=== PATIENT | female | born 1955 | race Caucasian/White ===

== ENCOUNTER 2017-10-17 08:38 | Outpatient (CLI) | payer OTHER, SELFPAY ==
[2017-10-17] VITALS (12 sets, daily range): BP systolic 98–133; BP diastolic 64–74; PULSE 55–81; RESP 14–18; TEMP 36.4; O2SAT 97–100
--- NOTE | 2017-10-17 08:41 | DI.RAD.S_ITS ---
PROCEDURE: PAIN C/T INTERLAMINAR INJECT INDICATIONS: 62 year-old female with cervical stenosis and bilateral upper extremity paresthesias. FINDINGS: Fluoroscopic spot filming was performed to verify placement of spinal needles at the right posterior paramedian C6-C7 level(s), as labeled on the films. Appropriate location(s) of the needle tip(s) was confirmed by injection of iodinated contrast. IMPRESSION: Fluoroscopic guidance for C6-C7 epidural injection. Dictated by: Clovis Armando M.D. on 10/17/2017 at 17:33 Approved by: Clovis Armando M.D. on 10/17/2017 at 17:34
--- NOTE | 2017-10-17 09:19 | PM.PROC.1 ---
Procedures Date/Time Date of procedure: 10/17/17 Time of procedure: 09:19 General Procedure description: PREOP DIAGNOSIS 1. CERVICAL STENOSIS, 2. CERVICAL HNP WITH UPPER EXTREMITY RADICULAR FEATURES, POST OP DIAGNOSIS 1. CERVICAL STENOSIS, 2. CERVICAL HNP WITH UPPER EXTREMITY RADICULAR FEATURES, PROCEDURES 1. FLUORSCOPICALLY GUIDED CONTRAST CONTROLLED INTERLAMINAR EPIDURAL STEROID INJECTION - C6/7 TL ERIN PHYSICIAN: Jose Alejandro Rivera DO INDICATIONS: Kiki is referred by Dr. Duffy for treatment of Cervical HNP with Upper Extremity Paresthesias. FINDINGS Cervical Stenosis due to disc deterioration and nerve root irritation and nerve root irritation DESCRIPTION OF PROCEDURE Fluoroscopically guided, contrast-controlled C6/7 translaminar epidural steroid injection with conscious sedation. Following denial of allergy and review of potential side effects and complications, including, but not necessarily limited to, infection, allergic reaction, local tissue breakdown, temporary as well as permanent nerve injury, stroke, paralysis, and possible , the patient indicated that patient understood and agreed to proceed. An informed consent document was signed by the patient, witnessed by a nurse, and placed in the patient's chart. Additionally, other treatment options including modalities, medications, and physical therapy were reviewed with the patient. Per the patient request, IV conscious sedation was administered via 3mg of Versed and 50mcg of Fentanyl to patient comfort. The patient's vital signs were monitored throughout the procedure by both the nurse and the physician without significant fluctuation. The patient remained conversant throughout the procedure. In the prone position, following sterile prep and drape of the cervical region, the C6/7 translaminar space was identified fluoroscopically. The skin was anesthetized via a 25-gauge 1.5-inch needle with 1% lidocaine solution. At this point, a 25-gauge, 2.5-inch short bevel spinal needle was atraumatically introduced and advanced under fluoroscopic guidance into epidural space at the C6/7 translaminar space. Depth was confirmed on lateral view. Radiological data, including multiple fluoroscopic views of the cervical spine, reveal a spinal needle at the C6/7 translaminar space. Lateral views then show placement of the needle in the epidural space. Subsequent views show contrast material flowing superiorly and inferiorly in the epidural space. DSA fluoroscopy with live contrast injection, once again, confirmed no vascular or intrathecal uptake. At this point, using loss of resistance technique with saline and air, the epidural space was entered. Following negative aspiration, injection of approximately 1.5 cc of Isovue-200 with live fluoroscopy in the AP view confirmed epidural flow in the epidural space without vascular or intrathecal uptake observed. Subsequently, a test dose of 1 cc of 1% lidocaine solution was injected and patient was observed for two minutes without signs or symptoms of complications, including abdominal pain, shortness of breath, bilateral upper or lower extremity weakness, nausea and vomiting, prior to steroid injection. At this point, 3 cc or 30 mg of dexamethasone was then injected without incident. The patient was then transferred to the recovery area where they were observed for an appropriate period of time after the injection. The patient reported a VAS score of 6 prior to the procedure and a post-procedure VAS of 0. Total Fluoroscopy Time: 37.0 seconds Total Conscious Time: 24min POST OP INSTRUCTIONS The patient was provided a Pain Log to continue to record their response to the target-specific procedure prior to follow-up visit with the referring provider. Additionally, specific post-injection care instructions and a contact number to our office were provided if concerns arise regarding possible complications associated with the procedure are suspected. Jose Alejandro Rivera, DO Complications: none
[2017-10-17] MEDS: MIDAZOLAM 5 MG/5 ML VIAL IV (09:53)
[2017-10-17] MEDS: DEXAMETHASONE 10 MG/ML VIAL 30 MG INJ (10:00)
[2017-10-17] MEDS: LIDOCAINE 1% 20 ML INJ 5 ML INJ (10:00)
[2017-10-17] MEDS: IOPAMIDOL 15 ML VIAL 3 ML INJ (10:00)
== END 2017-10-17 10:43 | disposition home or self-care (01) ==
LOC: RAD 08:40
PROVIDERS: Family Provider Physician Assistant; PCP Family Medicine; Visit Provider Physical Medicine & Rehabilitation
DX: M50.123 Cervical disc disorder at C6-C7 level with radiculopathy (principal); M50.20 Other cervical disc displacement, unspecified cervical region; R20.2 Paresthesia of skin; M48.02 Spinal stenosis, cervical region
CPT/HCPCS: 62321; 99152; 99153; J1100; J2250

== ENCOUNTER 2018-01-02 08:38 | Outpatient (CLI) | payer OTHER, SELFPAY ==
[2018-01-02] VITALS (11 sets, daily range): BP systolic 96–110; BP diastolic 53–80; PULSE 62–88; RESP 16–20; TEMP 36.1; O2SAT 97–100
--- NOTE | 2018-01-02 | DI.RAD.S_ITS ---
PROCEDURE: PAIN C/T FACET INJ/BLK 1ST L INDICATIONS: RADICULOPATHY,CERVICA;L FINDINGS: Fluoroscopic spot filming was performed to verify placement of spinal needles at the right C4-5, C5-6, C6-7 facet level(s), as labeled on the films. Appropriate location(s) of the needle tip(s) was confirmed by injection of iodinated contrast. IMPRESSION: Successful right-sided 3 level facet localization for facet joint injection. Dictated by: Edi Harris M.D. on 01/02/2018 at 13:18 Approved by: Edi Harris M.D. on 01/02/2018 at 13:19
[2018-01-02 09:07] LABS: Add Manual Diff / Slide Review NO; Basophils Percent Auto 0.8 % (0-2); Hematocrit 41.7 % (36-46); Hemoglobin 14.6 g/dL (12.0-16.0); Lymphocytes Percent Auto 22.7 % (25-40); Mean Corpuscular HGB Conc 34.9 % (30-36); Mean Corpuscular Hemoglobin 33.1 PG (26-34); Mean Corpuscular Volume 94.9 fL (80-100); Monocytes Percent Auto 12.3 % (3-14); Neutrophils Absolute Auto 3100 /uL (3000-5900); Neutrophils Percent Auto 62.2 % (50-75); Platelet Count 191 X10^3/uL (150-400); Red Cell Distribution Width 12.5 % (11.6-14.8)
[2018-01-02 09:13] LABS: Appearance Urine UA CLEAR; Bilirubin Urine UA NEGATIVE (NEGATIVE); Color Urine UA YELLOW; Glucose Urine UA NEGATIVE (Normal); Ketones Urine UA NEGATIVE (NEGATIVE); Leukocyte Esterase Urine UA NEGATIVE (NEGATIVE); Nitrite Urine UA Negative (Negative); Occult Blood Urine UA NEGATIVE (Negative); Protein Urine UA NEGATIVE (Negative); Urobilinogen Urine UA 0.2 E.U./dL (0.2); pH Urine UA 7.5 (4.5-8.0)
[2018-01-02 09:15] LABS: Alanine Aminotransferase 23 IU/L (9-52); Albumin 4.3 g/dL (3.5-5.0); Albumin Globulin Ratio 1.5 (1.0-2.8); Alkaline Phosphatase 60 U/L (38-126); Aspartate Aminotransferase 30 IU/L (14-36); BUN Creatinine Ratio 17.5 (6-22); Bilirubin Total 0.7 mg/dL (0.2-1.3); Blood Urea Nitrogen 14 mg/dL (7-17); Calcium 9.2 mg/dL (8.4-10.2); Carbon Dioxide 32 mmol/L (22-32); Chloride 102 mmol/L (98-107); Cholesterol 203 mg/dL (140-199); Estimated Glomerular Filt Rate > 60.0 mL/min (>60); Globulin 2.8 g/dL (1.7-4.1); Glucose 88 mg/dL (80-110); HDL Cholesterol 48 mg/dL (40-60); HEMOLYSIS 16 (0-50); LDL Cholesterol Calculated 118 mg/dL (<100); Potassium 4.2 mmol/L (3.4-5.1); Sodium 139 mmol/L (137-145); Total Protein 7.1 g/dL (6.3-8.2); Triglycerides 183 mg/dL (35-150)
--- NOTE | 2018-01-02 09:29 | PM.PROC.1 ---
Procedures Date/Time Date of procedure: 01/02/18 Time of procedure: 09:29 General Procedure description: PREOP DIAGNOSIS 1. FACET ARTHROPATHY 2. AXIAL NECK PAIN POST OP DIAGNOSIS 1. FACET ARTHROPATHY 2. AXIAL NECK PAIN PROCEDURES 1. FLUOROSCOPICALLY GUIDED, CONTRAST-CONTROLLED RIGHT C4/5,C5/6 AND C6/7 FACET JOINT INJECTIONS WITH CONSCIOUS SEDATION. PHYSICIAN: Jose Alejandro Rivera, INDICATIONS Kiki is referred by Dr. Duffy for treatment of Axial Neck Pain DESCRIPTION OF PROCEDURE Fluoroscopically guided, contrast-controlled Right C4/5, C5/6 and C6/7 facet joint injections with conscious sedation. Following denial of allergy and review of potential side effects and complications, including, but not necessarily limited to, infection, allergic reaction, local tissue breakdown, stroke, temporary or permanent nerve injury and paralysis, the patient indicated that the patient understood and agreed to proceed. An informed consent document was signed by the patient, witnessed by a nurse, and placed in the patient's chart. Additionally, other treatment options including medications, modalities, and physical therapy were reviewed with the patient. After review of previous anaesthesic history and IV conscious sedation the patient was deemed safe to proceed with todays procedure with IV conscious sedation as ASA class II designation. Safety time-out was performed to confirm patient ID, procedure to be performed and site of procedure. IV sedation was accomplished with a combination of 3mg was administered by the RN after DO order, titrated to patient comfort during the course of the procedure while the patient remained responsive to all verbal commands In the prone position, following sterile prep and drape of the cervical spine region, the posterior aspect of the right C4/5, C5/6 and C6/7 facet joints were identified fluoroscopically. The skin was anesthetized via a 25-gauge 1.5-inch needle with 1% lidocaine solution into the corresponding facet joints. At this point, a 25-gauge 2.5-inch spinal needle was atraumatically introduced and advanced under fluoroscopic guidance into the corresponding facet joints. Following negative aspiration, injections of approximately 0.2-cc of Isovue 200 confirmed interarticular placement without vascular uptake. At this point, a total of 1 cc including 0.5 cc or 5 mg of dexamethasone combined with 0.5 cc of 1% lidocaine solution was injected without complication into each of the corresponding facet joints. The procedure tolerated the procedure well without signs or symptoms of complications prior to transfer to the recovery area continued monitoring without incident. The patient was then transferred to the recovery area where they were observed for an appropriate period of time after the injection. The patient reported a VAS score of 7 prior to the procedure and a post-procedure VAS of 0. Total Fluoroscopy Time: 20.5 seconds Total Conscious Sedation Time: 24 min POST OP INSTRUCTIONS They were provided a Pain Log to continue to record their response to the target-specific procedure prior to their follow-up visit with their referring physician. Additionally, specific post-injection care instructions and a contact number to our office were provided if concerns arise regarding possible complications associated with the procedure are suspected. Jose Alejandro Rivera DO Complications: none
--- NOTE | 2018-01-02 09:32 | P.PCN_ITS ---
Procedures Date/Time Date of procedure: 01/02/18 Time of procedure: 09:29 General Procedure description: PREOP DIAGNOSIS 1. FACET ARTHROPATHY 2. AXIAL NECK PAIN POST OP DIAGNOSIS 1. FACET ARTHROPATHY 2. AXIAL NECK PAIN PROCEDURES 1. FLUOROSCOPICALLY GUIDED, CONTRAST-CONTROLLED RIGHT C4/5,C5/6 AND C6/7 FACET JOINT INJECTIONS WITH CONSCIOUS SEDATION. PHYSICIAN: Jose Alejandro Rivera, INDICATIONS Kiki is referred by Dr. Duffy for treatment of Axial Neck Pain DESCRIPTION OF PROCEDURE Fluoroscopically guided, contrast-controlled Right C4/5, C5/6 and C6/7 facet joint injections with conscious sedation. Following denial of allergy and review of potential side effects and complications, including, but not necessarily limited to, infection, allergic reaction, local tissue breakdown, stroke, temporary or permanent nerve injury and paralysis, the patient indicated that the patient understood and agreed to proceed. An informed consent document was signed by the patient, witnessed by a nurse, and placed in the patient's chart. Additionally, other treatment options including medications, modalities, and physical therapy were reviewed with the patient. After review of previous anaesthesic history and IV conscious sedation the patient was deemed safe to proceed with todays procedure with IV conscious sedation as ASA class II designation. Safety time-out was performed to confirm patient ID, procedure to be performed and site of procedure. IV sedation was accomplished with a combination of 3mg was administered by the RN after DO order , titrated to patient comfort during the course of the procedure while the patient remained responsive to all verbal commands In the prone position, following sterile prep and drape of the cervical spine region, the posterior aspect of the right C4/5, C5/6 and C6/7 facet joints were identified fluoroscopically. The skin was anesthetized via a 25-gauge 1.5-inch needle with 1% lidocaine solution into the corresponding facet joints. At this point, a 25-gauge 2.5-inch spinal needle was atraumatically introduced and advanced under fluoroscopic guidance into the corresponding facet joints. Following negative aspiration, injections of approximately 0.2-cc of Isovue 200 confirmed interarticular placement without vascular uptake. At this point, a total of 1 cc including 0.5 cc or 5 mg of dexamethasone combined with 0.5 cc of 1% lidocaine solution was injected without complication into each of the corresponding facet joints. The procedure tolerated the procedure well without signs or symptoms of complications prior to transfer to the recovery area continued monitoring without incident. The patient was then transferred to the recovery area where they were observed for an appropriate period of time after the injection. The patient reported a VAS score of 7 prior to the procedure and a post- procedure VAS of 0. Total Fluoroscopy Time: 20.5 seconds Total Conscious Sedation Time: 24 min POST OP INSTRUCTIONS They were provided a Pain Log to continue to record their response to the target -specific procedure prior to their follow-up visit with their referring physician. Additionally, specific post-injection care instructions and a contact number to our office were provided if concerns arise regarding possible complications associated with the procedure are suspected. Jose Alejandro Rivera DO Complications: none
[2018-01-02] MEDS: MIDAZOLAM 5 MG/5 ML VIAL IV (09:55)
[2018-01-02] MEDS: BUPIVACAINE 0.25% (PF) VIAL 2 ML INJ (10:05)
[2018-01-02] MEDS: DEXAMETHASONE 10 MG/ML VIAL 30 MG INJ (10:06)
[2018-01-02] MEDS: IOPAMIDOL 15 ML VIAL 3 ML INJ (10:06)
[2018-01-02 10:28] LABS: Thyroid Stimulating Hormone 0.16 uIU/mL (0.47-4.68)
--- NOTE | 2018-01-03 13:38 | PC.NURSE ---
Called patient for follow up post procedure yesterday, left message as pt did not answer.
== END 2018-01-02 10:39 ==
PROVIDERS: PCP Family Medicine; Visit Provider Physical Medicine & Rehabilitation
DX: M47.22 Other spondylosis with radiculopathy, cervical region (principal); M54.2 Cervicalgia; I10 Essential (primary) hypertension; E78.2 Mixed hyperlipidemia; Z13.29 Encounter for screening for other suspected endocrine disorder
CPT/HCPCS: 36415; 64490; 64491; 80053; 80061; 81003; 84443; 85025; 99152; J1100; J2250

== ENCOUNTER → 2018-02-18 14:33 | Outpatient (CLI) | payer OTHER, SELFPAY ==
[2018-02-18 15:22] LABS: Add Manual Diff / Slide Review NO; Basophils Percent Auto 0.7 % (0-2); Eosinophils Percent Auto 1.2 % (2-4); Hematocrit 43.7 % (36-46); Lymphocytes Percent Auto 20.3 % (25-40); Mean Corpuscular HGB Conc 34.2 % (30-36); Mean Corpuscular Hemoglobin 32.9 PG (26-34); Mean Corpuscular Volume 96.3 fL (80-100); Monocytes Percent Auto 9.6 % (3-14); Neutrophils Absolute Auto 4400 /uL (3000-5900); Neutrophils Percent Auto 68.2 % (50-75); Platelet Count 206 X10^3/uL (150-400); Red Blood Cell Count 4.54 X10^6/uL (4.0-5.2); Red Cell Distribution Width 12.2 % (11.6-14.8); White Blood Cell Count 6.4 X10^3/uL (4.5-11.0)
[2018-02-18 16:16] LABS: Alanine Aminotransferase 30 IU/L (9-52); Albumin 4.4 g/dL (3.5-5.0); Albumin Globulin Ratio 1.6 (1.0-2.8); Alkaline Phosphatase 58 U/L (38-126); Aspartate Aminotransferase 32 IU/L (14-36); BUN Creatinine Ratio 21.3 (6-22); Bilirubin Total 0.6 mg/dL (0.2-1.3); Blood Urea Nitrogen 17 mg/dL (7-17); Calcium 9.9 mg/dL (8.4-10.2); Carbon Dioxide 32 mmol/L (22-32); Chloride 102 mmol/L (98-107); Estimated Glomerular Filt Rate > 60.0 mL/min (>60); Globulin 2.8 g/dL (1.7-4.1); Glucose 80 mg/dL (80-110); HEMOLYSIS < 15 (0-50); Potassium 4.7 mmol/L (3.4-5.1); Sodium 143 mmol/L (137-145); Total Protein 7.2 g/dL (6.3-8.2)
[2018-02-18 16:34] LABS: Free T3, Triiodothyronine Free 2.76 pg/mL (2.77-5.27); Free T4, Direct Thyroxine 0.94 ng/dL (0.78-2.19)
[2018-02-18 18:37] LABS: Thyroid Stimulating Hormone 0.55 uIU/mL (0.47-4.68)
[2018-02-20 15:23] LABS: Estradiol 40 pg/mL
== END ==
PROVIDERS: PCP Family Medicine; Visit Provider Family Medicine
DX: N95.0 Postmenopausal bleeding (principal); R79.89 Other specified abnormal findings of blood chemistry
CPT/HCPCS: 36415; 80053; 82670; 83001; 84439; 84443; 84481; 85025

== ENCOUNTER → 2018-02-20 14:46 | Outpatient (CLI) | payer OTHER, SELFPAY ==
--- NOTE | 2018-02-20 14:52 | DI.MRI.S_ITS ---
PROCEDURE: MR LUMBAR SPINE WO CON INDICATIONS: Low back pain with right lower extremity symptoms TECHNIQUE: Noncontrast sagittal T1 spin echo and T2 fast echo, sagittal STIR, axial T1 and T2 fast spin echo through the lumbar spine. In cases with scoliosis, additional coronal T2 fast spin echo may be performed. COMPARISON: None. FINDINGS: Image quality: Excellent. Alignment and Curvature: There is normal bony alignment. Bone Marrow: Marrow is of normal overall signal. No acute vertebral body compression fractures. Spinal Cord: Conus medullaris terminates at the T12 level. Visualized cord demonstrates normal signal and size. Paraspinous Soft Tissues: No paravertebral masses. Tarlov cysts are partially characterized at S2-S3. L1-L2: Normal appearance. L2-L3: Normal appearance. L3-L4: Mild disc desiccation. Broad-based disc bulge. Mild facet ligamentum flavum hypertrophy. No canal stenosis. Mild bilateral foraminal stenosis. L4-L5: Moderate disc desiccation and height loss. Broad-based disc bulge. Moderate facet ligamentum flavum hypertrophy. No canal stenosis. Mild bilateral neuroforaminal narrowing. Small focal posterior high intensity zone. L5-S1: Severe disc desiccation and height loss. Broad-based disc bulge. Reactive endplate changes. No canal stenosis. No neural foraminal narrowing. IMPRESSION: 1. Multilevel disc desiccation and height loss most severe at L5-S1. 2. Posterior L4-L5 annular fibrosis tear. 3. No canal stenosis or significant foraminal stenosis. Dictated by: Nereida Dunham M.D. on 02/20/2018 at 16:20 Approved by: Nereida Dunham M.D. on 02/20/2018 at 16:28
== END ==
PROVIDERS: PCP Family Medicine; Visit Provider Physical Medicine & Rehabilitation
DX: M51.16 Intervertebral disc disorders with radiculopathy, lumbar region (principal); M47.27 Other spondylosis with radiculopathy, lumbosacral region
CPT/HCPCS: 72148

== ENCOUNTER 2018-02-27 08:56 | Outpatient (CLI) | payer OTHER, SELFPAY ==
[2018-02-27] VITALS (8 sets, daily range): BP systolic 97–121; BP diastolic 30–78; PULSE 62–71; RESP 14–16; TEMP 36.4; O2SAT 96–98
--- NOTE | 2018-02-27 09:02 | DI.RAD.S_ITS ---
PROCEDURE: PAIN C/T INTERLAMINAR INJECT INDICATIONS: CERVICAL STENOSIS FINDINGS: Fluoroscopic spot filming was performed to verify placement of spinal needles at the C6-C7 level(s), as labeled on the films. Appropriate location(s) of the needle tip(s) was confirmed by injection of iodinated contrast. Dictated by: Tanner Garcia M.D. on 02/27/2018 at 13:30 Approved by: Tanner Garcia M.D. on 02/27/2018 at 13:32
[2018-02-27] MEDS: MIDAZOLAM 5 MG/5 ML VIAL IV (09:36)
[2018-02-27] MEDS: IOPAMIDOL 15 ML VIAL 3 ML INJ (09:36)
[2018-02-27] MEDS: LIDOCAINE 1% 20 ML INJ 5 ML INJ (09:36)
[2018-02-27] MEDS: DEXAMETHASONE 10 MG/ML VIAL 30 MG INJ (09:36)
--- NOTE | 2018-02-27 09:46 | PC.NURSE ---
pt finished, remains awake, will get her off table and into chair. Transferring from Procedure room to pre procedure room.
--- NOTE | 2018-02-27 09:51 | PM.PROC.1 ---
Procedures Date/Time Date of procedure: 02/27/18 Time of procedure: 09:51 General Procedure description: PREOP DIAGNOSIS 1. CERVICAL STENOSIS, 2. CERVICAL HNP WITH UPPER EXTREMITY RADICULAR FEATURES, POST OP DIAGNOSIS 1. CERVICAL STENOSIS, 2. CERVICAL HNP WITH UPPER EXTREMITY RADICULAR FEATURES, PROCEDURES 1. FLUORSCOPICALLY GUIDED CONTRAST CONTROLLED INTERLAMINAR EPIDURAL STEROID INJECTION - C6/7 TL ERIN PHYSICIAN: Jose Alejandro Rivera DO INDICATIONS: Kiki is referred by Dr. Duffy for treatment of Cervical HNP with Upper Extremity Paresthesias. FINDINGS Cervical Stenosis due to disc deterioration and nerve root irritation and nerve root irritation DESCRIPTION OF PROCEDURE Fluoroscopically guided, contrast-controlled C6/7 translaminar epidural steroid injection with conscious sedation. Following denial of allergy and review of potential side effects and complications, including, but not necessarily limited to, infection, allergic reaction, local tissue breakdown, temporary as well as permanent nerve injury, stroke, paralysis, and possible , the patient indicated that patient understood and agreed to proceed. An informed consent document was signed by the patient, witnessed by a nurse, and placed in the patient's chart. Additionally, other treatment options including modalities, medications, and physical therapy were reviewed with the patient. After review of previous anaesthesic history and IV conscious sedation the patient was deemed safe to proceed with todays procedure with IV conscious sedation as ASA class II designation. Safety time-out was performed to confirm patient ID, procedure to be performed and site of procedure. IV sedation was accomplished with a combination of 5mg of Versed administered by the RN after DO order, titrated to patient comfort during the course of the procedure while the patient remained responsive to all verbal commands. In the prone position, following sterile prep and drape of the cervical region, the C6/7 translaminar space was identified fluoroscopically. The skin was anesthetized via a 25-gauge 1.5-inch needle with 1% lidocaine solution. At this point, a 25-gauge, 2.5-inch short bevel spinal needle was atraumatically introduced and advanced under fluoroscopic guidance into epidural space at the C6/7 translaminar space. Depth was confirmed on lateral view. Radiological data, including multiple fluoroscopic views of the cervical spine, reveal a spinal needle at the C6/7 translaminar space. Lateral views then show placement of the needle in the epidural space. Subsequent views show contrast material flowing superiorly and inferiorly in the epidural space. DSA fluoroscopy with live contrast injection, once again, confirmed no vascular or intrathecal uptake. At this point, using loss of resistance technique with saline and air, the epidural space was entered. Following negative aspiration, injection of approximately 1.5 cc of Isovue-200 with live fluoroscopy in the AP view confirmed epidural flow in the epidural space without vascular or intrathecal uptake observed. Subsequently, a test dose of 1 cc of 1% lidocaine solution was injected and patient was observed for two minutes without signs or symptoms of complications, including abdominal pain, shortness of breath, bilateral upper or lower extremity weakness, nausea and vomiting, prior to steroid injection. At this point, 3 cc or 30 mg of dexamethasone was then injected without incident. The patient tolerated the procedure well without signs or symptoms of complications prior to being transferred to the recovery area for further monitoring, The patient was then transferred to the recovery area where they were observed for an appropriate period of time after the injection. The patient reported a VAS score of 6 prior to the procedure and a post-procedure VAS of 0. Total Fluoroscopy Time: 37.0 seconds Total Conscious Time: 24min POST OP INSTRUCTIONS The patient was provided a Pain Log to continue to record their response to the target-specific procedure prior to follow-up visit with the referring provider. Additionally, specific post-injection care instructions and a contact number to our office were provided if concerns arise regarding possible complications associated with the procedure are suspected. Jose Alejandro Rivera DO Complications: none
--- NOTE | 2018-02-27 09:58 | PC.NURSE ---
at 0952 recieved pt via w/c, stable condition, transfer self to recliner chair, pain free, tolerating drinking water and eating cookies.
== END 2018-02-27 10:23 | disposition home or self-care (01) ==
PROVIDERS: PCP Family Medicine; Visit Provider Physical Medicine & Rehabilitation
DX: M54.12 Radiculopathy, cervical region (principal); M50.20 Other cervical disc displacement, unspecified cervical region
CPT/HCPCS: 62321; 99152; J1100; J2250

== ENCOUNTER → 2018-03-04 13:54 | Outpatient (CLI) | payer OTHER, SELFPAY ==
--- NOTE | 2018-03-04 13:56 | DI.US.S_ITS ---
PROCEDURE: US PELVIC COMPLETE INDICATIONS: POST MENOPAUSAL BLEEDING TECHNIQUE: Real-time scanning was performed of the pelvic organs, with image documentation. Additional endovaginal scanning was necessary due to incomplete visualization of the adnexal and endometrial structures by transabdominal scanning. COMPARISON: [facility], CT, KUB - CT (PNL), 11/21/2011, 11:55. FINDINGS: Transabdominal scanning: Limited scanning through the kidneys shows no hydronephrosis. No pathologic free abdominal or pelvic fluid. Endovaginal scanning: Uterus: Uterus is normal in size at 8.1 x 3.2 x 5.9 cm. The endometrium measures 12 mm in combined thickness and there is multicystic appearance. Moderate arcuate appearance of the endometrial complex is noted. Nabothian cyst and small nodular endocervical mass with a vascular stalk suggesting possible endocervical polyp measuring 8 mm. Ovaries: Simple cyst Basi right ovary measuring 15 mm otherwise ovaries are normal. IMPRESSION: 1. Abnormal thickening and cystic changes of the endometrial complex. Endometrial carcinoma cannot be excluded and gynecologic consultation and endometrial biopsy is recommended. 2. Possible endocervical polyp or other neoplastic mass measuring 8 mm. 3. Simple right ovarian cyst. Dictated by: Keo ALVAA Interpreted: Radha Good MD on 03/04/2018 at 15:27 Approved by: Radha Good MD, PhD on 03/04/2018 at 15:42
== END ==
PROVIDERS: PCP Family Medicine; Visit Provider Family Medicine
DX: N95.0 Postmenopausal bleeding (principal); N83.291 Other ovarian cyst, right side; R93.89 Abnormal findings on diagnostic imaging of other specified body structures
CPT/HCPCS: 76830; 76856

== ENCOUNTER 2018-05-17 09:53 | Day surgery (SDC) | payer OTHER, SELFPAY ==
[2018-05-15 12:42] VITALS: BMI 22.4
[2018-05-17] VITALS (10 sets, daily range): BP systolic 102–129; BP diastolic 52–74; PULSE 64–84; RESP 12–17; TEMP 36.1–36.9; O2SAT 93–97; BMI 22.4
--- NOTE | 2018-05-17 | PATH_ITS ---
[facility] Accession Number: [id number] . 01 Material submitted: . ENDOMETRIAL CURETINGS AND POLYPS . 02 Diagnosis: Endometrial Curettings and Polyps: Portions of disordered proliferative endometrium; negative for glandular hyperplasia, cytologic atypia, and malignancy. Some tissue fragments demonstrate prominent vessels, suggestive of polyp, if clinical and imaging findings are concordant. MRV/05/20/2018 . 02 Electronically signed: . Viktoriya Pelaez MD, Pathologist NPI- [id number] . 01 Gross description: . Received one formalin-filled container labeled with the patient's name and labeled endometrial curettings and polyps. The specimen consists of approximately a 1.25 cc aggregate of tissue, mucoid material, and blood, which is filtered, wrapped, and entirely submitted in one cassette. ([id number]) /FRR . 02 Pathologist provided ICD-10: N84.0 . 02 CPT . 885488 Performed at: 01 [facility] [address], [place], [place] [id number] MD Jesse Osorio MD Phone: [phone] Performed at: 02 [facility] [address] [place], [place] [id number] MD Rosina Melo MD Phone: [phone]
[2018-05-17] MEDS: LACTATED RINGERS 1,000 ML 42 ML IV ×2 (10:40→14:24)
--- NOTE | 2018-05-17 12:40 | PM.PREOP ---
Pre-operative Note Interval Note History & Physical reviewed/Exam performed by Physician: Yes Changes to H&P: No
--- NOTE | 2018-05-17 13:18 | SUR.OPER ---
Lithotomy on padded OR bed, head on pillow, arms secured on padded arm boards at <90 degrees abduction. Legs secured in padded yellow fins stirrups.
[2018-05-17] MEDS: KETOROLAC 30 MG/ML VIAL IV (14:06)
[2018-05-17] MEDS: fentaNYL 100 MCG/2 ML INJ 50 MCG IV (14:08)
[2018-05-17] MEDS: OXYCODONE/ACETAMINOPHEN 5/325 TABLET 1 TAB PO ×2 (14:10→14:30)
--- NOTE | 2018-05-30 07:23 | PM.GYNOP.1 ---
Operative Date/Time/Diagnoses Date of procedure: 05/17/18 Time of procedure: 12:00 Pre-op diagnosis: Cervical stenosis Postmenopausal bleeding Possible endometrial polyp Post-op diagnosis: same Procedure: Procedures Operation Date: 05/17/18 11:15 Actual Procedures Side Surgeon p Hysteroscopy D&C w/resection of polyps Carri Joy MD Indications: Cervical stenosis Postmenopausal bleeding Possible endometrial polyp Surgeon: Carri Joy Anesthesia Type: General (LMA) Operative Notes Findings: 6 week size anteverted uterus Polyps in the cornua of the uterus bilaterally Closure Type: not applicable Specimen(s): other (Endometrial polyp) Estimated blood loss (mL): 10 Blood products transfused: none Procedure in detail: After informed consent was obtained, the patient was taken to the operating room where she was placed in the dorsal supine position. After adequate LMA general anesthesia was achieved, she was placed in the dorsal lithotomy position, and prepped and draped in the usual sterile fashion. A bivalve speculum was placed into the vagina, and the anterior lip of the cervix grasped with a single-tooth tenaculum. The cervical os was sequentially dilated starting at the very small dilators up to the # 8 Hegar dilator. The hysteroscope passed easily into the endometrial cavity. There were polyps in both cornu of the uterus. The hysteroscope was removed. The cervical os was further dilated to the # 9 Hegar dilator. The resectoscope passed easily into the endometrial cavity. Both polyps were resected in several pieces with settings at 60 cut and 40 cautery. The loop was used to obtain hemostasis. The resectoscope was removed from the uterus. The single-tooth tenaculum was removed from the anterior lip of the cervix. The bivalve speculum was removed from the vagina. Sponge, lap, and instrument counts were correct x2. Patient tolerated the procedure well, and was taken to PACU in stable condition.
== END 2018-05-17 15:01 | disposition home or self-care (01) ==
PROVIDERS: PCP Family Medicine; Visit Provider Obstetrics & Gynecology
PROC: 0UDB8ZZ Extraction of Endometrium, Via Natural or Artificial Opening Endoscopic (ICD-10-PCS; CPT 58558; principal; 2018-05-17 11:15)
DX: N84.0 Polyp of corpus uteri (principal); N88.2 Stricture and stenosis of cervix uteri
CPT/HCPCS: 58558; J1100; J1885; J2250; J2405; J2704; J3010

== ENCOUNTER → 2018-05-20 12:35 | Outpatient (CLI) | payer OTHER, SELFPAY ==
--- NOTE | 2018-05-20 | DI.MG.S_ITS ---
BILATERAL DIGITAL SCREENING MAMMOGRAM 3D/2D WITH CAD: 05/20/2018 CLINICAL: Routine screening. Family history of breast cancer. Comparison is made to exams dated: 03/09/2017 mammogram, 05/05/2015 mammogram, and 04/17/2014 mammogram - [facility]. The tissue of both breasts is heterogeneously dense. This may lower the sensitivity of mammography. Current study was also evaluated with a Computer Aided Detection (CAD) system. No significant masses, calcifications, or other findings are seen in either breast. There has been no significant interval change. IMPRESSION: NEGATIVE There is no mammographic evidence of malignancy. A 1 year screening mammogram is recommended. This exam was interpreted at Station ID: [id number]. NOTE: For mammograms, a report in lay terms will be sent to the patient. Approximately 15% of breast malignancies will not be visualized mammographically. In the management of a palpable breast mass, a negative mammogram must not discourage biopsy of a clinically suspicious lesion. Electronically Signed By: Robson dixon/edmund:05/20/2018 17:18:30 letter sent: Normal Exam ACR BI-RADS Category 1: Negative [id number]
== END ==
PROVIDERS: PCP Family Medicine; Visit Provider Family Medicine
DX: Z12.31 Encounter for screening mammogram for malignant neoplasm of breast (principal); Z80.3 Family history of malignant neoplasm of breast
CPT/HCPCS: 77063; 77067

== ENCOUNTER 2019-01-09 10:47 | Day surgery (SDC) | payer MEDICARE, SELFPAY ==
[2019-01-07 08:11] VITALS: BMI 23.6
--- NOTE | 2019-01-09 | PATH_ITS ---
[facility] Accession Number: [id number] . 01 Material submitted: . endometrium - ENDOMETRIAL CURETTINGS . 02 Diagnosis: Endometrial Curettings: Small portions of weakly proliferative endometrium with patchy regions of stromal breakdown; negative for glandular hyperplasia, cytologic atypia, and malignancy. The specimen consists predominantly of blood. MR/01/10/2019 . 02 Electronically signed: . Viktoriya Pelaez MD, Pathologist NPI- [id number] . 01 Gross description: . ENDOMETRIAL CURETTINGS: Received in formalin are minute fragments of mucoid and hemorrhagic material measuring 0.4 x 0.4 x 0.3 cm in aggregate. Submitted in toto in 1 cassette. /DMC /D[facility] . 02 Pathologist provided ICD-10: N85.00 . 02 CPT . 833198 Performed at: 01 [facility] [address], [place], [place] [id number] MD Jesse Osorio MD Phone: [phone] Performed at: 02 [facility] [address] [place], [place] [id number] MD Rosina Melo MD Phone: [phone]
[2019-01-09 11:08] VITALS: BMI 23.4
[2019-01-09 11:17] VITALS: BP 113/73; PULSE 60; RESP 12; TEMP 36.1; O2SAT 99
--- NOTE | 2019-01-09 11:23 | SUR.OPER ---
Lithotomy on padded OR bed, head on pillow, arms secured on padded arm boards at <90 degrees abduction. Legs secured in padded yellow fins stirrups.
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
[2019-01-09] MEDS: LACTATED RINGERS 1,000 ML 42 ML IV (11:26)
--- NOTE | 2019-01-09 11:27 | PM.PREOP ---
Pre-operative Note Interval Note History & Physical reviewed/Exam performed by Physician: Yes Changes to H&P: No
[2019-01-09 13:30] VITALS: BP 133/71; PULSE 82; RESP 14; TEMP 36; O2SAT 99
[2019-01-09 13:35] VITALS: BP 119/64; PULSE 76; RESP 14; O2SAT 96
[2019-01-09 13:39] VITALS: BP 128/73; PULSE 82; RESP 14; TEMP 36.2; O2SAT 95
[2019-01-09 13:50] VITALS: BP 139/80; PULSE 68; RESP 16; TEMP 36.2; O2SAT 95
[2019-01-09] MEDS: OXYCODONE/ACETAMINOPHEN 5/325 TABLET 1 TAB PO (13:50)
[2019-01-09 14:00] VITALS: BP 121/66; PULSE 69; RESP 16; TEMP 36.7; O2SAT 99
--- NOTE | 2019-01-09 14:03 | SUR.PHASEII ---
Warm blanket applied to abd. Pt reported pain 12/21. Call light within reach.
--- NOTE | 2019-01-09 14:06 | SUR.PHASEI ---
Asked about pain. Appears comfortable but says she is cramping. Asked to rate 1-10 with 10 worst/most pain. Says It is an 8, but I'm okay. Seems like she wants to please. Medicated with one Percocet.
--- NOTE | 2019-01-10 11:59 | PM.GYNOP.1 ---
Operative Date/Time/Diagnoses Date of procedure: 01/09/19 Time of procedure: 13:00 Pre-op diagnosis: Postmenopausal bleeding Endometrial polyp Post-op diagnosis: same Procedure & Clinicians Procedure: Procedures Operation Date: 01/09/19 11:45 Actual Procedures Side Surgeon p D/C Hysteroscopy w/ Endometrial Ablation with Novasure Carri Joy MD Indications: Postmenopausal bleeding Endometrial polyp Surgeon: Carri Joy Anesthesia Type: General (LMA) Operative Notes Findings: 5 week size anteverted uterus 2 small polyps near the right fallopian tube ostia, 1 large polyp near the left fallopian tube ostia Thin endometrial lining Closure Type: not applicable Specimen(s): endometrial curettings Estimated blood loss (mL): 5 Blood products transfused: none Procedure in detail: After informed consent was obtained, the patient was taken to the operating room where she was placed in the dorsal supine position. After adequate LMA general anesthesia was achieved, she was placed in the dorsal lithotomy position, and prepped and draped in the usual sterile fashion. A time-out was performed. A bivalve speculum was placed into the vagina and the anterior lip of the cervix grasped with a single-tooth tenaculum. The cervical os was sequentially dilated until the hysteroscope could pass easily into the endometrial cavity. Initial inspection revealed 2 small polyps near the right fallopian tube ostia, and 1 large polyp near the left fallopian tube ostia. The hysteroscope was removed from the uterus. Polyp forceps were used to try to reach the polyps. Gentle sharp curettage was performed yielding a large amount of endometrial curettings. The uterus was measured from the internal os to the fundus and was set at 4.0 cm. This was set on the NovaSure catheter and the generator. The NovaSure catheter passed easily into the endometrial cavity and was opened. The width of the uterus was 2.5 cm. This was set on the generator. This indicated a power of 55 w. The cervix was capped, the cavity assessment was performed and passed. The cycle was initiated and lasted 146 sec. At the completion of the cycle the catheter was closed, the cervix was then capped, and the catheter was removed from the uterus. The single-tooth tenaculum was removed from the anterior lip of the cervix. The bivalve speculum was removed from the vagina. Sponge, lap, and instrument counts were correct x2. The patient tolerated the procedure well, and was taken to PACU in stable condition. Complications: none Post-operative Condition: stable Disposition: PACU Plan for aftercare: Home after recovery
== END 2019-01-09 14:15 | disposition home or self-care (01) ==
PROVIDERS: PCP Family Medicine; Visit Provider Obstetrics & Gynecology
PROC: 0U5B8ZZ Destruction of Endometrium, Via Natural or Artificial Opening Endoscopic (ICD-10-PCS; CPT 58563; principal; 2019-01-09 11:45)
DX: N85.00 Endometrial hyperplasia, unspecified (principal); N84.0 Polyp of corpus uteri; N88.2 Stricture and stenosis of cervix uteri
CPT/HCPCS: 58563; J1100; J2405; J2704; J3010

== ENCOUNTER → 2019-06-02 11:17 | Outpatient (CLI) | payer MEDICARE, SELFPAY ==
--- NOTE | 2019-06-02 | DI.MG.S_ITS ---
BILATERAL DIGITAL SCREENING MAMMOGRAM 3D/2D WITH CAD: 06/02/2019 CLINICAL: Routine screening. Comparison is made to exams dated: 05/20/2018 mammogram, 03/09/2017 mammogram, and 05/05/2015 mammogram - [facility]. The tissue of both breasts is heterogeneously dense. This may lower the sensitivity of mammography. Current study was also evaluated with a Computer Aided Detection (CAD) system. No significant masses, calcifications, or other findings are seen in either breast. There has been no significant interval change. IMPRESSION: NEGATIVE There is no mammographic evidence of malignancy. A 1 year screening mammogram is recommended. This exam was interpreted at Station ID: [id number]. NOTE: For mammograms, a report in lay terms will be sent to the patient. Approximately 15% of breast malignancies will not be visualized mammographically. In the management of a palpable breast mass, a negative mammogram must not discourage biopsy of a clinically suspicious lesion. Electronically Signed By: Darin chicas/edmund:06/03/2019 10:06:27 letter sent: Normal Exam ACR BI-RADS Category 1: Negative [id number]
== END ==
PROVIDERS: PCP Family Medicine; Visit Provider Family Medicine
DX: Z12.31 Encounter for screening mammogram for malignant neoplasm of breast (principal)
CPT/HCPCS: 77063; 77067

== ENCOUNTER → 2019-09-02 08:48 | Outpatient (CLI) | payer MEDICARE, SELFPAY ==
[2019-09-02 10:20] LABS: Add Manual Diff / Slide Review NO; Basophils Absolute Auto 100 /uL (0-100); Basophils Percent Auto 1.1 % (0-2); Eosinophils Absolute Auto 100 /uL (0-450); Eosinophils Percent Auto 2.7 % (2-4); Hematocrit 41.8 % (36-46); Hemoglobin 14.7 g/dL (12.0-16.0); Lymphocytes Absolute Auto 1100 /uL (1100-4500); Mean Corpuscular HGB Conc 35.2 % (30-36); Mean Corpuscular Volume 96.7 fL (80-100); Monocytes Absolute Auto 500 /uL (0-900); Monocytes Percent Auto 10.1 % (3-14); Neutrophils Absolute Auto 3000 /uL (1500-7000); Neutrophils Percent Auto 63.1 % (50-75); Platelet Count 199 X10^3/uL (150-400); Red Blood Cell Count 4.32 X10^6/uL (4.0-5.2); Red Cell Distribution Width 12.4 % (11.6-14.8); White Blood Cell Count 4.8 X10^3/uL (4.5-11.0)
[2019-09-02 10:54] LABS: Alanine Aminotransferase 18 IU/L (<35); Albumin 4.2 g/dL (3.5-5.0); Albumin Globulin Ratio 1.4 (1.0-2.8); Alkaline Phosphatase 68 U/L (38-126); Aspartate Aminotransferase 33 IU/L (14-36); BUN Creatinine Ratio 16.5 (6-22); Bilirubin Total 0.7 mg/dL (0.2-1.3); Blood Urea Nitrogen 14 mg/dL (7-17); Calcium 9.4 mg/dL (8.4-10.2); Carbon Dioxide 28 mmol/L (22-32); Chloride 103 mmol/L (98-107); Cholesterol 189 mg/dL (140-199); Estimated Glomerular Filt Rate > 60.0 mL/min (>60); Globulin 2.9 g/dL (1.7-4.1); Glucose 82 mg/dL (80-110); HDL Cholesterol 45 mg/dL (40-60); HEMOLYSIS < 15 (0-50); LDL Cholesterol Calculated 112 mg/dL (<100); Potassium 4.5 mmol/L (3.4-5.1); Sodium 139 mmol/L (137-145); Total Protein 7.1 g/dL (6.3-8.2); Triglycerides 158 mg/dL (35-150)
[2019-09-02 11:20] LABS: Thyroid Stimulating Hormone 0.39 uIU/mL (0.47-4.68)
== END ==
PROVIDERS: PCP Family Medicine; Referring Provider Family Medicine; Visit Provider Family Medicine
DX: Z00.00 Encounter for general adult medical examination without abnormal findings (principal); Z78.0 Asymptomatic menopausal state; F41.9 Anxiety disorder, unspecified
CPT/HCPCS: 36415; 80053; 80061; 84443; 85025

== ENCOUNTER → 2019-09-17 14:04 | Outpatient (CLI) | payer MEDICARE, SELFPAY ==
[2019-09-17 17:52] LABS: Free T3, Triiodothyronine Free 2.97 pg/mL (2.77-5.27); Free T4, Direct Thyroxine 0.98 ng/dL (0.78-2.19)
== END ==
PROVIDERS: PCP Family Medicine; Referring Provider Family Medicine; Visit Provider Family Medicine
DX: R79.89 Other specified abnormal findings of blood chemistry (principal)
CPT/HCPCS: 36415; 84439; 84481

== ENCOUNTER → 2019-09-19 15:23 | Outpatient (CLI) | payer MEDICARE, SELFPAY ==
--- NOTE | 2019-09-19 15:26 | DI.US.S_ITS ---
PROCEDURE: US PELVIC COMPLETE INDICATIONS: Evaluate Postmenopausal bleeding TECHNIQUE: Real-time scanning was performed of the pelvic organs, with image documentation. Additional endovaginal scanning was necessary due to incomplete visualization of the adnexal and endometrial structures by transabdominal scanning. COMPARISON: [facility], CT, KUB - CT (PNL), 11/21/2011, 11:55. [facility], US, US PELVIC COMPLETE, 01/02/2019, 17:14. [facility], US, US PELVIC COMPLETE, 03/20/2019, 15:43. FINDINGS: Transabdominal scanning: Limited scanning through the kidneys shows no hydronephrosis. No pathologic free abdominal or pelvic fluid. Endovaginal scanning: Uterus: Uterus is normal in size at 6.6 x 5.4 x 7.7 cm. The endometrium measures 24 mm in combined thickness. It appears increased thickness compared to prior exams. There is a questionable appearance of bicornuate uterus. Ovaries: Right ovary measures 17 x 15 x 19 mm. Left ovary measures 20 x 15 x 21 mm. IMPRESSION: 1. Thickened endometrium greater than expected for postmenopausal state with bleeding. Neoplasm cannot be excluded and further evaluation is recommended. Dictated by: Hailee Diaz M.D. on 09/19/2019 at 17:48 Approved by: Hailee Diaz M.D. on 09/19/2019 at 17:52
== END ==
PROVIDERS: PCP Family Medicine; Referring Provider Obstetrics & Gynecology; Visit Provider Obstetrics & Gynecology
DX: N95.0 Postmenopausal bleeding (principal); R93.89 Abnormal findings on diagnostic imaging of other specified body structures
CPT/HCPCS: 76830; 76856

== ENCOUNTER → 2019-12-22 14:35 | Outpatient (CLI) | payer MEDICARE, SELFPAY ==
[2019-12-23 07:27] LABS: COVID19 Sendout Not Detected (Not Detect)
== END ==
PROVIDERS: PCP Family Medicine; Visit Provider Physician Assistant
DX: Z11.59 Encounter for screening for other viral diseases (principal)
CPT/HCPCS: 87635

== ENCOUNTER 2019-12-25 08:29 | Day surgery (SDC) | payer MEDICARE, SELFPAY ==
[2019-12-19 12:11] VITALS: BMI 22.8
[2019-12-25] VITALS (11 sets, daily range): BP systolic 101–133; BP diastolic 55–83; PULSE 64–104; RESP 14–18; TEMP 36.7–37.6; O2SAT 90–99; BMI 23.1
--- NOTE | 2019-12-25 | PATH_ITS ---
[facility] Accession Number: [id number] . 01 Material submitted: . UTERUS/TUBES/OVARIES - UTERUS, BILATERAL FALLOPIAN TUBES AND OVARIES . 02 Diagnosis: Uterus, Bilateral Fallopian Tubes and Ovaries, Supracervical Hysterectomy and Bilateral Salpingo-oophorectomy: Ovary with adult granulosa cell tumor; see Cancer Case Summary. Contralateral ovary with no diagnostic abnormality. Bilateral fallopian tubes with simple benign paratubal cysts; no evidence of neoplasm. Weakly proliferative endometrium with no diagnostic abnormality; no evidence of neoplasm. Myometrium with no diagnostic abnormality; no evidence of neoplasm. . Cancer Case Summary - Ovary: Procedure: Supracervical hysterectomy and bilateral salpingo-oophorectomy. Specimen Integrity: Specimen Integrity of Right Ovary: Capsule intact. Specimen Integrity of Left Ovary: Capsule intact. Specimen Integrity of Right Fallopian Tube: Serosa intact. Specimen Integrity of Left Fallopian Tube: Serosa intact. Morcellated Specimen: Uterus (supracervical). Tumor Site: Ovary, laterality cannot be determined. Intact ovaries from a morcellated specimen. Ovarian Surface Involvement: Absent. Tumor Size: 0.9 cm in greatest dimension on glass slide. Histologic Type: Granulosa cell tumor, adult type. Histologic Grade: Not applicable. Other Tissue/Organ Involvement: Not identified. Peritoneal/Ascitic Fluid: Not submitted. Regional Lymph Nodes: No lymph nodes submitted or found. Pathologic Stage Classification (pTNM, AJCC 8th Edition): Primary Tumor: pT1a. Regional Lymph Nodes: pNX. FIGO Stage (2018 FIGO Cancer Report): IA. Additional Pathologic Findings: None identified. [facility] 12/31/2019 1550 Local . 02 Comment: As part of routine quality control checker, Dr. Melo has reviewed this case and agrees that the lesion is immunophenotypically consistent with an adult granulosa cell tumor. The findings in this case were discussed with Dr. Joy and Dr. Loaiza on 12/31/2019 at 3:15 pm. . 02 Electronically signed: . Kris Loaiza MD, PhD, Pathologist NPI- [id number] . 01 Gross description: . Received in formalin, labeled with the patient's name, MRN, and uterus, bilateral fallopian tubes, bilateral ovaries, is a 212-gram, 15.0 x 13.2 x 2.5 cm aggregate of morcellated uterus with two fimbriated fallopian tubes (averaging 6.5 cm in length by 0.6 cm in diameter) and attached ovaries; ovary attached to shorter fallopian tube (2 grams, 2.0 x 1.6 x 0.8 cm) and ovary attached to longer fallopian tube (2 grams, 1.9 x 1.2 x 0.5 cm). The identifiable serosal surface of the uterus is pink-diaz and smooth. The possible identifiable endometrium is diaz-pink and unremarkable. The possible endometrial thickness measures 0.2 cm. The myometrial thickness cannot be determined due to the nature of the specimen. The cervix is not identified. No discrete lesions are identified. The external surfaces of the fallopian tubes are purple-pink and smooth. The longer fallopian tube has a 0.9 cm in greatest dimension paratubal cyst. The fallopian tubes are serially sectioned to reveal a diaz-white cut surface with stellate lumina. The external surfaces of the ovaries are diaz-white and cerebriform. The ovaries are sectioned to reveal a diaz-pink smooth cut surface. Financial Developer sections are submitted as follows: . A1: billing representative sections of possible endometrium. A2: billing representative sections of serosa. A3-A4: billing representative sections of shorter fallopian tube and entire serially sectioned fimbriated end. A5: billing representative sections of ovary attached to shorter fallopian tube. A6-A7: billing representative sections of longer fallopian tube and entire serially sectioned fimbriated ends with paratubal cyst. A8: half of ovary attached to longer fallopian tube. ([place]/[facility] [id number]) A9: no tissue submitted. A10: remainder of ovary attached to shorter fallopian tube. A11: remainder of ovary attached to longer fallopian tube tube. (/[id number]) /MRV 12/31/2019 1534 Local . 02 Microscopic: . Sections of ovary (blocks A5 and A10) show expansion of ovarian parenchyma by a well-circumscribed but non-encapsulated proliferation of epithelioid and spindled cells. There is no significant nuclear atypia. Up to 3 mitotic figures are seen per 10 high-powered microscopic gregory. To further classify the cells of interest, a panel of immunohistochemical stains is performed (each with an appropriately positive control). The cells of interest are strongly and diffusely positive for vimentin, inhibin, and calretinin immunoreactivity, and rare cells are immunoreactive for CD10. The cells of interest are negative for YOUSUF, desmin, and WT1 immunoreactivity. A reticulin stain highlights groups of cells within the reticulin meshwork. The overall morphology and immunoprofile are consistent with an adult granulosa cell tumor. . * This test was developed and its performance characteristics determined by [employer]. It has not been cleared or approved by the U.S. Food and Drug Administration. The FDA has determined that such clearance or approval is not necessary. This test is used for clinical purposes. It should not be regarded as investigational or for research. . 02 Pathologist provided ICD-10: C56.9 . 02 CPT . 903872, B25152, X79961, 016108 Performed at: 01 [facility] [address], [place], [place] [id number] MD Jesse Osorio MD Phone: [phone] Performed at: 02 [facility] [address] [place], [place] [id number] MD Rosina Melo MD Phone: [phone]
[2019-12-25] MEDS: LACTATED RINGERS 1,000 ML 100 ML IV ×2 (09:12→12:30)
--- NOTE | 2019-12-25 09:34 | PM.PREOP ---
Pre-operative Note COVID-19 COVID-19 status: Negative Result date/Date tested (Pos, Neg/Pending): 12/22/19 Interval Note History & Physical reviewed/Exam performed by Physician: Yes Changes to H&P: No H&P completed within 30 days and has changed as indicated here:: 12/22/19
[2019-12-25] MEDS: CEFAZOLIN 2 GM/100 ML FROZ.PIGGY IV (09:47)
--- NOTE | 2019-12-25 10:31 | SUR.OPER ---
Lithotomy on padded OR bed. Wixom Pad Positioner under torso. Head on pillow, arms padded and tucked at sides. Legs secured in padded yellow fins stirrups.
[2019-12-25] MEDS: BUPIVACAINE 0.5% W/ EPI (PF) 30 ML VIAL INJ (10:39)
[2019-12-25] MEDS: ROPIVACAINE 0.2% PF 2 MG/ML 10ML AMP 20 ML INJ (10:40)
--- NOTE | 2019-12-25 12:14 | P.OP_ITS ---
Operative Date/Time/Diagnoses Date of procedure: 12/25/19 Time of procedure: 12:15 Pre-op diagnosis: Persistent postmenopausal bleeding Negative endometrial biopsy Status post endometrial ablation Post-op diagnosis: same Procedure & Clinicians Procedure: Procedures Operation Date: 12/25/19 09:45 Actual Procedures Side Surgeon p Laparoscopic Supracervical Hysterectomy W/ bilateral salpingo-oophorectomy Carri Joy MD Indications: Persistent postmenopausal bleeding Negative endometrial biopsies Status post endometrial ablation Surgeon: Carri Joy [employer] Supervisor: Prashanth Kumar Anesthesia Type: General Operative Notes Findings: Ten week size, wide, uterus Normal tubes and ovaries Normal appendix, liver, and gallbladder Closure Type: primary Specimen(s): left tube & ovary, right tube & ovary and uterus Applied: catheter (Discontinued at the end of the case) Estimated blood loss (mL): 100 Blood products transfused: none Procedure in detail: The patient was taken to the operating room where she was placed in the dorsal supine position. After adequate general endotracheal anesthesia was achieved, she was placed in the dorsal lithotomy position, and prepped and draped in the usual sterile fashion. A timeout was performed. A bivalve speculum was placed into the vagina and the anterior lip of the cervix grasped with a single-tooth tenaculum. An attempt was made to dilate the cervix and lower uterine segment but unable due to previous ablation. The single-tooth tenaculum was removed from the anterior lip of the cervix. The bivalve speculum was removed from the vagina. Attention was then turned to the abdomen where 6 mL of half percent Marcaine with epinephrine were injected in the umbilical fold. A 5 mm incision was made. The veress needle was placed into the peritoneal cavity, and its placement confirmed by aspiration and drop test. The veress needle was removed. A 5 mm trocar was placed without difficulty. 2 other incisions were made midway between the pubic symphysis and umbilicus after 5 mL of half percent Marcaine with epinephrine were injected. These were 5 mm incisions. Two, 5 mm trochars were placed under direct visualization. A 4th trocar was placed after 6 cc of 0.5% Marcaine with epinephrine were injected this was between the umbilical trocar and the left lateral trocar. A 5 mm trocar was placed under direct visualization. 6 cc of 0.5% Marcaine were injected above the pubic symphysis. A 2 cm incision was made. A 12 mm trocar was placed under direct visualization. The right tube and ovary were grasped with an atraumatic grasper. Using the plasma kinetic with settings of 40 W the infundibulopelvic ligament on the right side was cauterized and cut all the way down to the cornua of the uterus. The cornua of the uterus was then grasped with an atraumatic grasper. The utero-ovarian ligaments were cauterized and cut. The round ligament and broad ligament were cauterized and cut with plasma kinetic. Hemostasis was achieved. The bladder flap was created using the plasma kinetic with cautery and cut chcf across. The uterine arteries on the right side were extensively cauterized with plasma kinetic. All of this was repeated on the left side. The remainder of the bladder flap was created using the plasma kinetic and point cautery and the bladder taken down off the lower uterine segment and cervix. Using the Linaloop, the cervix was amputated from the uterus 2 cm above the uterosacral ligaments, after the ZUMI uterine manipulator was removed from the uterus and a moistened sponge stick was placed in the vagina. There was a small amount of bleeding noted from the right edge of the cervix, and this was cauterized for hemostasis. The suprapubic trocar was removed. The incision was extended with a Amanda. A 15 mm Endobag was placed through the suprapubic incision and the uterus placed into the Endobag. The edges of the bag were brought up through the incision. An Paresh was placed into the bag after grasping the uterus with a Amanda. The uterus was morcellated in approximately 20 pieces. The tubes and ovaries were also removed from the Endobag. The Endobag was removed from the peritoneal cavity with the Paresh inside. The pelvis was copiously irrigated with warm normal saline. No bleeding was noted. 20 mL of 0.2% ropivacaine were placed over the pelvic pedicles. The instruments were removed from the abdomen. The CO2 was allowed to escape. The suprapubic incision was closed on the fascia with 0 Vicryl. All of the incisions were closed with 4-0 Biosyn in a subcuticular fashion. Steri strips, 2x2's and op sites were placed over the incisions. The moistened sponge stick was removed from the vagina. Sponge, lap, and instrument counts were correct x 2. The patient tolerated the procedure well, was taken to PACU in stable condition. Complications: none Post-operative Condition: stable Disposition: PACU Plan for aftercare: Home after recovery
[2019-12-25] MEDS: OXYCODONE IR 5 MG TABLET PO ×2 (12:51→14:28)
--- NOTE | 2019-12-25 13:05 | SUR.PHASEII ---
pt arrived to phase II via stretcher. Pt sitting up in bed, alert and orientated. Pt denies any pain/discomfort at this time. Abdomen drsg's observed to be c/d/i. Micki-pad observed to have no drainage. Bed in lowest position and call light given to pt. pt appears comfortable at this time.
--- NOTE | 2019-12-25 14:33 | SUR.PHASEII ---
Pt in stable condition, vss. pt sitting up in bed, alert and talking to at bedside. Reviewed dc instructions with pt and pt . bed in lowest position and call light given to pt. pt appears comfortable at this time.
[2019-12-25] MEDS: LACTATED RINGERS 1,000 ML 42 ML IV (15:40)
--- NOTE | 2019-12-25 15:40 | SUR.PHASEII ---
pt attempted to urinate x2. pt unsuccessful with urinating besides three small drops of urine. Scanned bladder, bladder scanner showed 155ml of urine. IV fluids wide open at this time. Pt has consumed 420ml of water and 210 ml of coffee at this time. Pt denies any pain/or discomfort at this time. Per pt request, up in unit ambulating without any difficultly.
--- NOTE | 2019-12-25 16:59 | SUR.PHASEII ---
Called and updated Dr. Joy on pt status and bladder scan amount at 1600. Per Dr. Joy, verbal order received straight cath patient, record amount and call Dr. Joy with the results. Straight cath completed by BRUCE Mojica, 150 ml clear yellow urine out. Pt tolerated procedure well. Called Dr. Joy and notified of straight cath results. Per Dr. Joy ok for pt to be discharged to home at that time. pt left facility in stable condition, vss.
== END 2019-12-25 17:00 | disposition home or self-care (01) ==
PROVIDERS: PCP Family Medicine; Referring Provider Obstetrics & Gynecology; Visit Provider Obstetrics & Gynecology
PROC: 0UT94ZL Resection of Uterus, Supracervical, Percutaneous Endoscopic Approach (ICD-10-PCS; CPT 58542; principal; 2019-12-25 09:45)
DX: C56.9 Malignant neoplasm of unspecified ovary (principal); F41.9 Anxiety disorder, unspecified
CPT/HCPCS: 58542; J0690; J1100; J1885; J2250; J2405; J2704; J2795; J3010

== ENCOUNTER → 2020-01-02 09:10 | Outpatient (CLI) | payer MEDICARE, SELFPAY ==
[2020-01-06 13:36] LABS: Inhibin B <7.0 pg/mL (0.0-16.9)
== END ==
PROVIDERS: PCP Family Medicine; Referring Provider Obstetrics & Gynecology; Visit Provider Obstetrics & Gynecology
DX: D39.10 Neoplasm of uncertain behavior of unspecified ovary (principal)
CPT/HCPCS: 36415; 83520; 86336

== ENCOUNTER → 2020-03-10 15:13 | Outpatient (CLI) | payer MEDICARE, SELFPAY ==
[2020-03-10 16:37] LABS: Free T3, Triiodothyronine Free 2.63 pg/mL (2.77-5.27)
[2020-03-10 16:50] LABS: Thyroid Stimulating Hormone 0.071 uIU/mL (0.47-4.68)
== END ==
PROVIDERS: PCP Family Medicine; Referring Provider Family Medicine; Visit Provider Family Medicine
DX: F41.9 Anxiety disorder, unspecified (principal); Z13.29 Encounter for screening for other suspected endocrine disorder
CPT/HCPCS: 36415; 84439; 84443; 84481

== ENCOUNTER → 2020-04-19 08:25 | Outpatient (CLI) | payer MEDICARE, SELFPAY ==
[2020-04-19 10:58] LABS: Free T3, Triiodothyronine Free 3.22 pg/mL (2.77-5.27); Free T4, Direct Thyroxine 1.39 ng/dL (0.78-2.19)
[2020-04-19 11:00] LABS: Thyroid Stimulating Hormone < 0.015 uIU/mL (0.47-4.68)
== END ==
PROVIDERS: PCP Family Medicine; Referring Provider Family Medicine; Visit Provider Family Medicine
DX: E03.9 Hypothyroidism, unspecified (principal); R94.6 Abnormal results of thyroid function studies
CPT/HCPCS: 36415; 84439; 84443; 84481

== ENCOUNTER → 2020-05-05 07:14 | Outpatient (CLI) | payer MEDICARE, SELFPAY ==
[2020-05-11 10:15] LABS: Inhibin A, Ultrasensitive 1.7 pg/mL (.)
[2020-05-11 12:44] LABS: Inhibin B <7.0 pg/mL (0.0-16.9)
== END ==
PROVIDERS: PCP Family Medicine; Referring Provider Obstetrics & Gynecology; Visit Provider Obstetrics & Gynecology
DX: N83.209 Unspecified ovarian cyst, unspecified side (principal); C56.9 Malignant neoplasm of unspecified ovary
CPT/HCPCS: 36415; 83520; 86336

== ENCOUNTER → 2020-06-17 08:20 | Outpatient (CLI) | payer MEDICARE, SELFPAY ==
--- NOTE | 2020-06-17 | DI.MG.S_ITS ---
BILATERAL DIGITAL SCREENING MAMMOGRAM 3D/2D WITH CAD: 06/17/2020 CLINICAL: Routine screening. Family history of breast cancer. Comparison is made to exams dated: 06/02/2019 mammogram, 05/20/2018 mammogram, and 03/09/2017 mammogram - [facility]. The tissue of both breasts is heterogeneously dense. This may lower the sensitivity of mammography. Current study was also evaluated with a Computer Aided Detection (CAD) system. No significant masses, calcifications, or other findings are seen in either breast. There has been no significant interval change. IMPRESSION: NEGATIVE There is no mammographic evidence of malignancy. A 1 year screening mammogram is recommended. This exam was interpreted at Station ID: [id number]. NOTE: For mammograms, a report in lay terms will be sent to the patient. Approximately 15% of breast malignancies will not be visualized mammographically. In the management of a palpable breast mass, a negative mammogram must not discourage biopsy of a clinically suspicious lesion. Electronically Signed By: Frederick prieto/edmund:06/17/2020 08:38:47 letter sent: Normal Exam ACR BI-RADS Category 1: Negative 3341F
== END ==
PROVIDERS: PCP Family Medicine; Referring Provider Family Medicine; Visit Provider Family Medicine
DX: Z12.31 Encounter for screening mammogram for malignant neoplasm of breast (principal); Z80.3 Family history of malignant neoplasm of breast
CPT/HCPCS: 77063; 77067

== ENCOUNTER → 2020-07-15 08:19 | Outpatient (CLI) | payer MEDICARE, SELFPAY ==
[2020-07-20 18:51] LABS: Inhibin A, Ultrasensitive 0.8 pg/mL (.); Inhibin B <7.0 pg/mL (0.0-16.9)
== END ==
PROVIDERS: PCP Family Medicine; Referring Provider Obstetrics & Gynecology; Visit Provider Obstetrics & Gynecology
DX: D39.10 Neoplasm of uncertain behavior of unspecified ovary (principal)
CPT/HCPCS: 36415; 83520; 86336

== ENCOUNTER → 2020-12-27 13:28 | Outpatient (CLI) | payer MEDICARE, SELFPAY ==
[2020-12-30 16:12] LABS: Inhibin B <7.0 pg/mL (0.0-16.9)
== END ==
PROVIDERS: PCP Family Medicine; Referring Provider Obstetrics & Gynecology; Visit Provider Obstetrics & Gynecology
DX: D39.11 Neoplasm of uncertain behavior of right ovary (principal)
CPT/HCPCS: 36415; 83520

== ENCOUNTER → 2021-03-01 12:12 | Outpatient (CLI) | payer MEDICARE, SELFPAY ==
[2021-03-01 12:52] LABS: Hematocrit 41.6 % (36-46); Hemoglobin 14.3 g/dL (12.0-16.0); Mean Corpuscular HGB Conc 34.4 % (30-36); Mean Corpuscular Hemoglobin 32.9 PG (26-34); Mean Corpuscular Volume 95.5 fL (80-100); Platelet Count 229 X10^3/uL (150-400); Red Blood Cell Count 4.36 X10^6/uL (4.0-5.2); Red Cell Distribution Width 12.3 % (11.6-14.8); White Blood Cell Count 5.2 X10^3/uL (4.5-11.0)
[2021-03-01 13:14] LABS: Alanine Aminotransferase 22 IU/L (<35); Albumin 4.3 g/dL (3.5-5.0); Albumin Globulin Ratio 1.6 (1.0-2.8); Alkaline Phosphatase 80 U/L (38-126); Aspartate Aminotransferase 34 IU/L (14-36); BUN Creatinine Ratio 20.8 (6-22); Bilirubin Total 0.4 mg/dL (0.2-1.3); Blood Urea Nitrogen 16 mg/dL (7-17); Calcium 9.1 mg/dL (8.4-10.2); Carbon Dioxide 30 mmol/L (22-32); Chloride 106 mmol/L (98-107); Estimated Glomerular Filt Rate > 60.0 mL/min (>60); Globulin 2.7 g/dL (1.7-4.1); Glucose 90 mg/dL (80-110); HEMOLYSIS < 15 (0-50); Potassium 4.2 mmol/L (3.4-5.1); Sodium 141 mmol/L (137-145)
[2021-03-01 14:15] LABS: Free T3, Triiodothyronine Free 3.24 pg/mL (2.77-5.27); Free T4, Direct Thyroxine 1.17 ng/dL (0.78-2.19)
[2021-03-01 14:28] LABS: Thyroid Stimulating Hormone 0.022 uIU/mL (0.47-4.68)
== END ==
PROVIDERS: PCP Registered Nurse Diabetes Educator; Referring Provider Registered Nurse Diabetes Educator; Visit Provider Registered Nurse Diabetes Educator
DX: E78.5 Hyperlipidemia, unspecified (principal); R79.89 Other specified abnormal findings of blood chemistry
CPT/HCPCS: 36415; 80053; 84439; 84443; 84481; 85027

== ENCOUNTER → 2021-03-02 07:58 | Outpatient (CLI) | payer MEDICARE, SELFPAY ==
[2021-03-02 09:48] LABS: Cholesterol 205 mg/dL (140-199); HDL Cholesterol 49 mg/dL (40-60); LDL Cholesterol Calculated 123 mg/dL (<100); Triglycerides 163 mg/dL (35-150)
== END ==
PROVIDERS: PCP Registered Nurse Diabetes Educator; Referring Provider Registered Nurse Diabetes Educator; Visit Provider Registered Nurse Diabetes Educator
DX: R79.89 Other specified abnormal findings of blood chemistry (principal); E78.5 Hyperlipidemia, unspecified
CPT/HCPCS: 36415; 80061

== ENCOUNTER → 2021-03-16 12:36 | Outpatient (CLI) | payer MEDICARE, SELFPAY ==
--- NOTE | 2021-03-16 12:39 | DI.RAD.S_ITS ---
PROCEDURE: XR DEXA AXIAL SKELETON INDICATIONS: osteoporosis screen COMPARISON: None. FINDINGS: This blank DEXA report has been sent in error by the PACS system. The correct and complete report will be forthcoming in 1-2 days. Thank you for your patience and understanding. Dictated by: Neil Laughlin M.D. on 03/16/2021 at 15:38 Approved by: Radha Good MD, PhD on 03/29/2021 at 10:05
== END ==
PROVIDERS: PCP Registered Nurse Diabetes Educator; Referring Provider Registered Nurse Diabetes Educator; Visit Provider Registered Nurse Diabetes Educator
DX: Z13.820 Encounter for screening for osteoporosis (principal); M85.852 Other specified disorders of bone density and structure, left thigh; Z78.0 Asymptomatic menopausal state; Z87.891 Personal history of nicotine dependence; Z82.62 Family history of osteoporosis
CPT/HCPCS: 77080

== ENCOUNTER → 2021-04-11 08:45 | Outpatient (CLI) | payer MEDICARE, SELFPAY ==
[2021-04-11 10:41] LABS: Free T3, Triiodothyronine Free 3.18 pg/mL (2.77-5.27); Free T4, Direct Thyroxine 0.82 ng/dL (0.78-2.19)
[2021-04-11 10:55] LABS: Thyroid Stimulating Hormone 0.148 uIU/mL (0.47-4.68)
== END ==
PROVIDERS: PCP Registered Nurse Diabetes Educator; Referring Provider Registered Nurse Diabetes Educator; Visit Provider Registered Nurse Diabetes Educator
DX: E03.9 Hypothyroidism, unspecified (principal); R94.6 Abnormal results of thyroid function studies; E78.5 Hyperlipidemia, unspecified
CPT/HCPCS: 36415; 84439; 84443; 84481

== ENCOUNTER → 2021-05-03 09:26 | Outpatient (CLI) | payer MEDICARE, SELFPAY ==
--- NOTE | 2021-05-03 09:28 | DI.MRI.S_ITS ---
PROCEDURE: MR BRAIN (PITUITARY) WWO CON INDICATIONS: eval hypothalamic/pituitary, poss central hypothyroidism TECHNIQUE: Noncontrast sagittal and axial FLAIR, axial gradient echo, axial diffusion and ADC through the brain. Thin-slice sagittal and coronal T1 spin echo, coronal T2 fast spin echo through the pituitary. After the administration contrast, optional dynamic coronal T1 spin echo, thin-slice coronal and sagittal T1 spin echo images through the pituitary fossa; axial T1 spin echo with fat saturation through the brain. COMPARISON: None. FINDINGS: Image quality: Excellent. Pituitary Gland: Pituitary gland has normal size and contour. Pituitary gland demonstrates normal homogeneous postcontrast enhancement with no areas of relative delayed postcontrast enhancement. Pituitary infundibulum is midline. No sellar suprasellar masses identified. The optic chiasm is normal. Cavernous sinus enhances normally. CSF Spaces: Ventricles are normal in size and shape. Basal cisterns are patent. No extra-axial fluid collections. Brain: No intracranial bleeds or mass effects. Few, , scattered, punctate foci of increased T2 signal noted in the periventricular and subcortical white matter is most compatible with minimal chronic microvascular ischemic change. There is a 1.6 centimeter in diameter rounded focus of increased T2 signal in the posterior right frontal subcortical white matter. There is a tiny punctate focus of central, possibly branching post-contrast enhancement associated with the T2 signal abnormality in the posterior Ellis-white matter interface is intact. Diffusion weighted images demonstrate no acute ischemic insults. Brainstem is normal. Normal intravascular flow voids are present. Skull and face: Calvarial marrow is normal in signal. Orbits appear normal. Sinuses: Sinuses and mastoids are clear. IMPRESSION: 1. No evidence of pituitary adenoma. 2. 1.6 centimeter focus of abnormal T2 signal in the right posterior subcortical white matter. There is small punctate focus of central and possibly brain seen postcontrast enhancement associated with the right frontal white matter signal abnormality. Finding may represent vascular malformation with associated chronic ischemic change related to vascular steal phenomenon, however neoplastic process is not completely excluded. Recommend dedicated MRI of the brain with and without contrast for additional evaluation. Dictated by: Radha Good MD, PhD on 05/03/2021 at 13:05 Approved by: Radha Good MD, PhD on 05/03/2021 at 13:11
== END ==
PROVIDERS: PCP Registered Nurse Diabetes Educator; Referring Provider Registered Nurse Diabetes Educator; Visit Provider Registered Nurse Diabetes Educator
DX: R90.82 White matter disease, unspecified (principal); R79.89 Other specified abnormal findings of blood chemistry
CPT/HCPCS: 70553; A9579

== ENCOUNTER → 2021-05-06 12:38 | Outpatient (CLI) | payer MEDICARE, SELFPAY ==
--- NOTE | 2021-05-06 12:40 | DI.MRI.S_ITS ---
PROCEDURE: MR HEAD/BRAIN WO/W CON INDICATIONS: abnormal brain imaging 05/03/21 TECHNIQUE: Noncontrast axial T1 spin echo, axial T2 fast spin echo, sagittal and axial FLAIR, coronal T2 fast spin echo, axial gradient echo, axial diffusion and ADC through the brain. After the administration of contrast, axial and coronal 3D VIBE or T1 spin echo with fat saturation through the brain. COMPARISON: None. FINDINGS: Image quality: Excellent. CSF Spaces: Basal cisterns are patent. No extra-axial fluid collections. Ventricles are normal in size and shape. Brain: Focus of increased T2/FLAIR signal in the right zamudio radiata on series 7, image 18 is redemonstrated. Postcontrast images demonstrate a punctate focus of enhancement within the central aspect of this lesion which extends to the right lateral ventricle. This is thought to represent a developmental venous anomaly producing a focus of chronic microvascular ischemic change due to vascular steal. There is background mild global cerebral volume loss and chronic microvascular ischemic change. No abnormal intracranial susceptibility or enhancement otherwise. There is no restricted diffusion. The major intracranial vascular flow-related signal voids are maintained. No mass effect or midline shift. Skull and face: Calvarial marrow is normal in signal. Orbits appear normal. Sinuses: Sinuses and mastoids appear clear. IMPRESSION: Previously seen signal abnormality in the right zamudio radiata is consistent with a small focus of chronic microvascular ischemic change due to a small DVA or perhaps tiny AVM producing a small region of vascular steal. Dictated by: Brad Serra M.D. on 05/07/2021 at 9:40 Approved by: Brad Serra M.D. on 05/07/2021 at 9:43
== END ==
PROVIDERS: PCP Registered Nurse Diabetes Educator; Referring Provider Registered Nurse Diabetes Educator; Visit Provider Registered Nurse Diabetes Educator
DX: R90.89 Other abnormal findings on diagnostic imaging of central nervous system (principal)
CPT/HCPCS: 70553; A9579

== ENCOUNTER → 2021-07-14 15:45 | Outpatient (CLI) | payer MEDICARE, SELFPAY ==
[2021-07-14 17:43] LABS: Free T3, Triiodothyronine Free 2.98 pg/mL (2.77-5.27); Free T4, Direct Thyroxine 1.07 ng/dL (0.78-2.19)
[2021-07-14 17:57] LABS: Thyroid Stimulating Hormone 0.482 uIU/mL (0.47-4.68)
[2021-07-19 13:49] LABS: Inhibin B <7.0 pg/mL (0.0-16.9)
== END ==
PROVIDERS: PCP Registered Nurse Diabetes Educator; Referring Provider Obstetrics & Gynecology; Visit Provider Obstetrics & Gynecology
DX: R79.89 Other specified abnormal findings of blood chemistry (principal); D39.11 Neoplasm of uncertain behavior of right ovary
CPT/HCPCS: 36415; 83520; 84439; 84443; 84481

== ENCOUNTER → 2021-08-10 08:15 | Outpatient (CLI) | payer MEDICARE, SELFPAY ==
--- NOTE | 2021-08-10 08:19 | DI.MG.S_ITS ---
BILATERAL DIGITAL SCREENING MAMMOGRAM 3D/2D WITH CAD: 08/10/2021 CLINICAL: Routine screening. Family history of breast cancer. Comparison is made to exams dated: 06/17/2020 mammogram, 06/02/2019 mammogram, 05/20/2018 mammogram, 03/09/2017 mammogram, and 05/05/2015 mammogram - [facility]. The tissue of both breasts is heterogeneously dense. This may lower the sensitivity of mammography. Current study was also evaluated with a Computer Aided Detection (CAD) system. No significant masses, calcifications, or other findings are seen in either breast. There has been no significant interval change. IMPRESSION: NEGATIVE There is no mammographic evidence of malignancy. A 1 year screening mammogram is recommended. This exam was interpreted at Station ID: [id number]. NOTE: For mammograms, a report in lay terms will be sent to the patient. Approximately 15% of breast malignancies will not be visualized mammographically. In the management of a palpable breast mass, a negative mammogram must not discourage biopsy of a clinically suspicious lesion. Electronically Signed By: Elliot wise/edmund:08/10/2021 12:48:05 letter sent: Normal Exam ACR BI-RADS Category 1: Negative 3341F
== END ==
PROVIDERS: PCP Registered Nurse Diabetes Educator; Referring Provider Registered Nurse Diabetes Educator; Visit Provider Registered Nurse Diabetes Educator
DX: Z12.31 Encounter for screening mammogram for malignant neoplasm of breast (principal); Z80.3 Family history of malignant neoplasm of breast
CPT/HCPCS: 77063; 77067

== ENCOUNTER → 2022-01-17 11:38 | Outpatient (CLI) | payer MEDICARE, SELFPAY ==
[2022-01-17 14:15] LABS: Free T3, Triiodothyronine Free 2.99 pg/mL (2.77-5.27)
[2022-01-17 14:29] LABS: Thyroid Stimulating Hormone 0.034 uIU/mL (0.47-4.68)
[2022-01-20 12:36] LABS: Inhibin B <7.0 pg/mL (0.0-16.9)
== END ==
PROVIDERS: PCP Registered Nurse Diabetes Educator; Referring Provider Obstetrics & Gynecology; Visit Provider Obstetrics & Gynecology
DX: R79.89 Other specified abnormal findings of blood chemistry (principal); D39.11 Neoplasm of uncertain behavior of right ovary
CPT/HCPCS: 83520; 84439; 84443; 84481

== ENCOUNTER → 2022-07-03 14:53 | Outpatient (CLI) | payer MEDICARE, SELFPAY ==
--- NOTE | 2022-07-03 14:57 | DI.RAD.S_ITS ---
PROCEDURE: XR HAND LT MIN 3V INDICATIONS: eval R 1st MCP and IP joint, L 1st CMC joint pain TECHNIQUE: 3 views of the hand acquired. COMPARISON: None. FINDINGS: Bones: No acute fractures or dislocations. Carpal bones are normally aligned. No suspicious bony lesions. Moderate joint space narrowing is seen at the 1st carpometacarpal joint with small marginal osteophytes and subchondral sclerosis. Mild degenerative changes are seen in the 1st metacarpophalangeal and 1st interphalangeal joints. Mild scattered degenerative changes are seen at the interphalangeal joints of the fingers Soft tissues: No suspicious soft tissue calcifications. IMPRESSION: Moderate 1st carpometacarpal joint osteoarthrosis. Mild scattered degenerative changes at the 1st metacarpophalangeal joint and the interphalangeal joints of the fingers and thumb. Approved by: Frederick Knox M.D. on 07/03/2022 at 15:42
--- NOTE | 2022-07-03 14:57 | DI.RAD.S_ITS ---
PROCEDURE: XR HAND RT MIN 3V INDICATIONS: eval R 1st MCP and IP joint, L 1st CMC joint pain TECHNIQUE: 3 views of the hand acquired. COMPARISON: None. FINDINGS: Bones: No acute fractures or dislocations. Carpal bones are normally aligned. No suspicious bony lesions. Moderate joint space narrowing is seen at the 1st carpometacarpal joint with subchondral sclerosis and marginal osteophytes. There are mild degenerative changes at the 1st metacarpophalangeal and 1st interphalangeal joints. Additional mild scattered degenerative changes are seen throughout the interphalangeal joints of the fingers. Soft tissues: No suspicious soft tissue calcifications. IMPRESSION: Moderate 1st carpometacarpal joint osteoarthrosis. Mild degenerative changes of the 1st metacarpophalangeal joint and throughout the interphalangeal joints of the fingers and thumb. Approved by: Frederick Knox M.D. on 07/03/2022 at 15:40
== END ==
PROVIDERS: PCP Registered Nurse Diabetes Educator; Referring Provider Registered Nurse Diabetes Educator; Visit Provider Registered Nurse Diabetes Educator
DX: M79.641 Pain in right hand (principal); M79.642 Pain in left hand; M18.0 Bilateral primary osteoarthritis of first carpometacarpal joints
CPT/HCPCS: 73130

== ENCOUNTER → 2022-07-19 11:57 | Outpatient (CLI) | payer MEDICARE, SELFPAY ==
[2022-07-24 14:37] LABS: Inhibin B <7.0 pg/mL (0.0-16.9)
== END ==
PROVIDERS: PCP Registered Nurse Diabetes Educator; Referring Provider Obstetrics & Gynecology; Visit Provider Obstetrics & Gynecology
DX: D39.11 Neoplasm of uncertain behavior of right ovary (principal)
CPT/HCPCS: 36415; 83520

== ENCOUNTER → 2022-08-10 08:08 | Outpatient (CLI) | payer MEDICARE, SELFPAY ==
[2022-08-10 09:00] LABS: Cholesterol 220 mg/dL (140-199); HDL Cholesterol 42 mg/dL (40-60); LDL Cholesterol Calculated 109 mg/dL (<100); Triglycerides 346 mg/dL (35-150)
[2022-08-10 09:15] LABS: Free T3, Triiodothyronine Free 3.57 pg/mL (2.77-5.27); Free T4, Direct Thyroxine 1.06 ng/dL (0.78-2.19)
[2022-08-10 09:29] LABS: Thyroid Stimulating Hormone 0.101 uIU/mL (0.47-4.68)
== END ==
PROVIDERS: PCP Registered Nurse Diabetes Educator; Referring Provider Registered Nurse Diabetes Educator; Visit Provider Registered Nurse Diabetes Educator
DX: E78.5 Hyperlipidemia, unspecified (principal); R79.89 Other specified abnormal findings of blood chemistry
CPT/HCPCS: 36415; 80061; 84439; 84443; 84481

== ENCOUNTER → 2022-08-12 10:56 | Outpatient (CLI) | payer MEDICARE, SELFPAY ==
--- NOTE | 2022-08-12 | DI.MG.S_ITS ---
BILATERAL DIGITAL SCREENING MAMMOGRAM 3D/2D WITH CAD: 08/12/2022 CLINICAL: Routine screening. Family history of breast cancer. Comparison is made to exams dated: 08/10/2021 mammogram, 06/17/2020 mammogram, 06/02/2019 mammogram, 05/20/2018 mammogram, and 03/09/2017 mammogram - [facility]. Both breasts are heterogeneously dense, which may obscure small masses (category c / 51-75% glandular tissue). Current study was also evaluated with a Computer Aided Detection (CAD) system. No significant masses, calcifications, or other findings are seen in either breast. There has been no significant interval change. IMPRESSION: NEGATIVE There is no mammographic evidence of malignancy. A 1 year screening mammogram is recommended. Based on the Tyrer Cuzick model (a risk assessment model) the patient's lifetime risk is 11.8% and her 10 year risk is 7.1%. According to the ACR, ACS, and NCCN guidelines, an annual breast MRI exam along with mammogram is recommended if the patient's lifetime risk is 20% or greater. This exam was interpreted at Station ID: [id number]. NOTE: For mammograms, a report in lay terms will be sent to the patient. Approximately 15% of breast malignancies will not be visualized mammographically. In the management of a palpable breast mass, a negative mammogram must not discourage biopsy of a clinically suspicious lesion. Electronically Signed By: Elliot wise/edmund:08/14/2022 08:00:11 letter sent: Normal Exam ACR BI-RADS Category 1: Negative 3341F
== END ==
PROVIDERS: PCP Registered Nurse Diabetes Educator; Referring Provider Registered Nurse Diabetes Educator; Visit Provider Registered Nurse Diabetes Educator
DX: Z12.31 Encounter for screening mammogram for malignant neoplasm of breast (principal); Z80.3 Family history of malignant neoplasm of breast
CPT/HCPCS: 77063; 77067

== ENCOUNTER 2023-04-17 09:05 | Day surgery (SDC) | payer MEDICARE, SELFPAY ==
[2023-04-17 09:29] VITALS: BMI 22.8
[2023-04-17 09:42] VITALS: BP 127/79; PULSE 107; RESP 16; TEMP 36.7; O2SAT 97
[2023-04-17] MEDS: LACTATED RINGERS 1,000 ML 42 ML IV (09:47)
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
[2023-04-17 10:51] VITALS: BP 100/56; PULSE 98; RESP 18; TEMP 36.9; O2SAT 95
[2023-04-17 10:56] VITALS: BP 100/61; PULSE 96; RESP 13; O2SAT 97
[2023-04-17 11:01] VITALS: BP 111/63; PULSE 92; RESP 17; O2SAT 98
--- NOTE | 2023-04-17 11:01 | P.OP.COLON_ITS ---
Operative Date/Time/Diagnoses Date of procedure: 04/17/23 Time of procedure: 11:01 Pre-op diagnosis: Family history of colon cancer Post-op diagnosis: same Procedure & Clinicians Study performed: Colonoscopy Same procedure as scheduled: Yes Indications: Family history of colon cancer Colorectal screening Surgeon: Presley Hayward Procedure Notes Procedure in detail: The history and physical was performed/updated and the patient is ASA class is 2. The procedure was discussed in detail with the patient. Potential risks complications including infection, bleeding, missed diagnosis, perforation, need for surgery, and were explained. Their questions were answered and informed consent was obtained. Patient was brought to the procedure room and placed standard monitoring equipment. The patient's vital signs were monitored continuously throughout the entire procedure. Prior to starting time-out was performed. The patient was placed in the left lateral recumbent position. Procedural sedation was administered by anesthesia. Examination began with a thorough inspection of the perianal area there was no evidence of fissures, fistulae, external hemorrhoids or cutaneous malignancy. The colonoscopy scope was then placed into the anal canal and was advanced to the cecum, which was identified by the ileocecal valve, the appendiceal orifice and the confluence of the taenia. The scope was then slowly withdrawn examining colon thoroughly in all directions, irrigating it of any residual stool. The scope was retroflexed within the rectum The patient tolerated the procedure well. They will be discharged once criteria are met. The prep was of fair quality. The withdrawl time was 8 minutes. FINDINGS * Wong diverticulosis * No masses or polyps * Internal hemorrhoids Specimen(s): none sent Impression: Normal colonoscopy Post-procedure Recommendations: Colonoscopy in 5 years Disposition: same day surgery
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
[2023-04-17 11:09] VITALS: BP 107/50; PULSE 96; RESP 18; O2SAT 97
== END 2023-04-17 11:37 | disposition home or self-care (01) ==
PROVIDERS: PCP Registered Nurse Diabetes Educator; Referring Provider Surgery; Visit Provider Surgery
PROC: 0DJD8ZZ Inspection of Lower Intestinal Tract, Via Natural or Artificial Opening Endoscopic (ICD-10-PCS; CPT 45378; principal; 2023-04-17 10:15)
DX: Z12.11 Encounter for screening for malignant neoplasm of colon (principal); Z80.0 Family history of malignant neoplasm of digestive organs; K57.30 Diverticulosis of large intestine without perforation or abscess without bleeding; K64.8 Other hemorrhoids
CPT/HCPCS: G0105; J2704

== ENCOUNTER → 2023-08-08 10:22 | Outpatient (CLI) | payer MEDICARE, SELFPAY ==
[2023-08-08 14:29] LABS: Free T3, Triiodothyronine Free 3.34 pg/mL (2.77-5.27)
[2023-08-08 14:43] LABS: Thyroid Stimulating Hormone 0.806 uIU/mL (0.47-4.68)
[2023-08-08 15:57] LABS: Cholesterol 219 mg/dL (140-199); HDL Cholesterol 57 mg/dL (40-60); LDL Cholesterol Calculated 131 mg/dL (<100); Triglycerides 153 mg/dL (35-150)
== END ==
PROVIDERS: PCP Registered Nurse Diabetes Educator; Referring Provider Registered Nurse Diabetes Educator; Visit Provider Registered Nurse Diabetes Educator
DX: E78.5 Hyperlipidemia, unspecified (principal); R79.89 Other specified abnormal findings of blood chemistry
CPT/HCPCS: 36415; 80061; 84439; 84443; 84481

== ENCOUNTER → 2023-09-17 11:56 | Outpatient (CLI) | payer MEDICARE, SELFPAY | PROVIDERS: PCP Registered Nurse Diabetes Educator; Referring Provider Obstetrics & Gynecology; Visit Provider Obstetrics & Gynecology | DX: D39.11 Neoplasm of uncertain behavior of right ovary (principal) | CPT/HCPCS: 83520 ==

== ENCOUNTER → 2023-09-24 15:02 | Outpatient (CLI) | payer MEDICARE, SELFPAY ==
--- NOTE | 2023-09-24 15:03 | DI.MG.S_ITS ---
BILATERAL DIGITAL SCREENING MAMMOGRAM 3D/2D WITH CAD: 09/24/2023 CLINICAL: Routine screening. Family history of breast cancer. Comparison is made to exams dated: 08/12/2022 mammogram, 08/10/2021 mammogram, and 06/17/2020 mammogram - [facility]. Both breasts are heterogeneously dense, which may obscure small masses (category c / 51-75% glandular tissue). Current study was also evaluated with a Computer Aided Detection (CAD) system. No significant masses, calcifications, or other findings are seen in either breast. There has been no significant interval change. IMPRESSION: NEGATIVE There is no mammographic evidence of malignancy. A 1 year screening mammogram is recommended. Based on the Tyrer Cuzick model (a risk assessment model) the patient's lifetime risk is 11.2% and her 10 year risk is 7.2%. According to the ACR, ACS, and NCCN guidelines, an annual breast MRI exam along with mammogram is recommended if the patient's lifetime risk is 20% or greater. This exam was interpreted at Station ID: [id number]. NOTE: For mammograms, a report in lay terms will be sent to the patient. Approximately 15% of breast malignancies will not be visualized mammographically. In the management of a palpable breast mass, a negative mammogram must not discourage biopsy of a clinically suspicious lesion. Electronically Signed By: Darin chicas/edmund:09/25/2023 17:31:21 letter sent: Normal Exam ACR BI-RADS Category 1: Negative [id number]
--- NOTE | 2023-09-24 15:03 | DI.RAD.S_ITS ---
PROCEDURE: XR DEXA AXIAL SKELETON INDICATIONS: F/u exam COMPARISON: [facility], , XR DEXA AXIAL SKELETON, 03/16/2021, 13:21. FINDINGS: Lumbar Spine: Bone mineral density 0.91 g/cm2, T score -1.2. Left Hip: Bone mineral density 0.804 g/cm2, T score -1.1. Left Femoral Neck: Bone mineral density 0.696 g/cm2, T score -1.4. Right Hip: Bone mineral density 0.800 g/cm2, T score -1.2. Right Femoral Neck: Bone mineral density 0.702 g/cm2, T score -1.3. Fracture Risk Calculation (when applicable): 10-year fracture risk of a major osteoporotic fracture 9.2% and of a hip fracture 1.2%. (T score greater or equal to -1.0 to: NORMAL) (T score from -1.1 to -2.4: OSTEOPENIA) (T score less than or equal to -2.5: OSTEOPOROSIS) IMPRESSION: Osteopenia Follow-up guidelines as follows: Osteoporosis: Consider a repeat DEXA and Vertebral Fracture Assessment (VFA) exam in 2 years or sooner if medically necessary, to reassess this patient's status. Osteopenia: Consider a repeat DEXA in 2-3 years to reassess this patient's status, or if there is a new clinical indication. Normal: Consider a repeat DEXA in 5 years or sooner, or if there is a new clinical indication. Dictated by: Darin Ellington M.D. on 09/25/2023 at 22:45 Approved by: Darin Ellington M.D. on 09/25/2023 at 22:47
== END ==
LOC: MAMMO 15:02
PROVIDERS: PCP Registered Nurse Diabetes Educator; Referring Provider Registered Nurse Diabetes Educator; Visit Provider Registered Nurse Diabetes Educator
DX: N95.9 Unspecified menopausal and perimenopausal disorder (principal); Z12.31 Encounter for screening mammogram for malignant neoplasm of breast; Z80.3 Family history of malignant neoplasm of breast; R92.333 Mammographic heterogeneous density, bilateral breasts; M85.89 Other specified disorders of bone density and structure, multiple sites
CPT/HCPCS: 77063; 77067; 77080

== ENCOUNTER → 2024-04-07 12:00 | Outpatient (CLI) | payer MEDICARE, SELFPAY ==
[2024-04-07 13:26] LABS: Cholesterol 263 mg/dL (140-199); HDL Cholesterol 65 mg/dL (40-60); LDL Cholesterol Calculated 147 mg/dL (<100); Triglycerides 255 mg/dL (35-150)
[2024-04-07 13:41] LABS: Free T3, Triiodothyronine Free 3.12 pg/mL (2.77-5.27); Free T4, Direct Thyroxine 0.94 ng/dL (0.78-2.19)
[2024-04-07 13:54] LABS: Thyroid Stimulating Hormone 0.543 uIU/mL (0.47-4.68)
== END ==
PROVIDERS: PCP Registered Nurse Diabetes Educator; Referring Provider Obstetrics & Gynecology; Visit Provider Obstetrics & Gynecology
DX: Z13.29 Encounter for screening for other suspected endocrine disorder (principal); E03.9 Hypothyroidism, unspecified; D39.10 Neoplasm of uncertain behavior of unspecified ovary; R94.6 Abnormal results of thyroid function studies
CPT/HCPCS: 80061; 84439; 84443; 84481; 86336

== ENCOUNTER → 2024-04-24 15:30 | Outpatient (CLI) | payer MEDICARE, SELFPAY ==
[2024-04-28 12:38] LABS: Inhibin B <7.0 pg/mL (0.0-16.9)
== END ==
PROVIDERS: PCP Registered Nurse Diabetes Educator; Referring Provider Obstetrics & Gynecology; Visit Provider Obstetrics & Gynecology
DX: D39.11 Neoplasm of uncertain behavior of right ovary (principal)
CPT/HCPCS: 36415; 83520

== ENCOUNTER → 2024-08-27 08:00 | Outpatient (CLI) | payer MEDICARE, SELFPAY ==
[2024-08-27 09:16] LABS: Cholesterol 229 mg/dL (140-199); HDL Cholesterol 53 mg/dL (40-60); LDL Cholesterol Calculated 145 mg/dL (<100); Triglycerides 157 mg/dL (35-150)
[2024-08-27 09:29] LABS: Free T3, Triiodothyronine Free 3.62 pg/mL (2.77-5.27); Free T4, Direct Thyroxine 1.01 ng/dL (0.78-2.19)
[2024-08-27 09:43] LABS: Thyroid Stimulating Hormone 0.021 uIU/mL (0.47-4.68)
== END ==
PROVIDERS: PCP Registered Nurse Diabetes Educator; Referring Provider Registered Nurse Diabetes Educator; Visit Provider Registered Nurse Diabetes Educator
DX: E78.5 Hyperlipidemia, unspecified (principal); R79.89 Other specified abnormal findings of blood chemistry
CPT/HCPCS: 36415; 80061; 84439; 84443; 84481

== ENCOUNTER → 2024-11-12 11:03 | Outpatient (CLI) | payer MEDICARE, SELFPAY ==
--- NOTE | 2024-11-12 11:04 | DI.MG.S_ITS ---
MM screening mammo BI: 11/12/2024. BI-RADS: 1 CLINICAL: 69-year old female for bilateral screening mammogram. Tyrer-Cuzick lifetime risk of 6.7%. No personal or first-degree family history of breast cancer. Current reported family history of breast cancer: maternal aunt. Personal history of ovarian cancer. PRIOR EXAMS 09/24/2023, 08/12/2022, 08/10/2021, MAMMOGRAPHY TECHNIQUE: 2D and 3D (tomosynthesis) digital mammographic views obtained, with additional images as needed for full coverage. Current study was also evaluated with a Computer Aided Detection (CAD) system. DENSITY C. The breasts are heterogeneously dense, which may obscure small masses. MAMMOGRAPHY FINDINGS Bilateral: No suspicious mass, asymmetry, microcalcification, or other abnormality seen. IMPRESSION: * No evidence of malignancy. RECOMMENDATIONS Bilateral * Annual screening mammography. OVERALL ASSESSMENT CATEGORY BI-RADS-1: Negative. The [employer] recommends annual screening mammography beginning at age 40 for women with average risk of breast cancer. ELECTRONICALLY SIGNED: Darin Ellington M.D. on 11/12/2024 at 12:20:41 PM PT Interpreting Station ID: [id number]
== END ==
LOC: MAMMO 11:03
PROVIDERS: PCP Registered Nurse Diabetes Educator; Referring Provider Registered Nurse Diabetes Educator; Visit Provider Registered Nurse Diabetes Educator
DX: Z12.31 Encounter for screening mammogram for malignant neoplasm of breast (principal); R92.333 Mammographic heterogeneous density, bilateral breasts; Z85.43 Personal history of malignant neoplasm of ovary; Z80.3 Family history of malignant neoplasm of breast
CPT/HCPCS: 77063; 77067